=== PATIENT | female | born 1945 | race Caucasian/White ===

== ENCOUNTER 2019-07-05 07:22 | Outpatient (CLI) | payer OTHER, SELFPAY ==
--- NOTE | ~2019-07-05 | MR_ITS ---
EXAMINATION: MR lumbar spine wo con DATE: 07/05/2019 08:27 INDICATION: Right lower limb pain aggravated by walking. TECHNIQUE: Magnetic resonance imaging (MRI) of the lumbar spine was performed without intravenous con trast. Sequences included sagittal T2-weighted FSE, sagittal T2-weighted FS FSE, sagittal T1-weighted FSE, and axial T2-weighted FSE. COMPARISON: None FINDINGS: Vertebral body heights are normal. 3 mm anterior and left lateral listhesis of L4 on L5. Severe disc height loss at L4-L5 with fibrovascular degenerative endplate changes. Moderate left-sided predomina nt disc height loss at L5-S1 with additional fibrovascular degenerative endplate changes. Marrow sign al is otherwise normal. Disc desiccation and mild disc height loss at T12-L1, L1-L2 and L3-L4. The co nus medullaris terminates at L2-L3. There is normal signal in the caudal spinal cord. Moderate right renal atrophy. Paravertebral soft tissues are otherwise unremarkable. The following disc levels are s pecifically discussed: T12-L1: Disc is bulging. There is hypertrophy of the ligamentum flavum. There is moderate bilateral f acet joint osteoarthritis. There is mild right and minimal left neural foraminal stenosis. There is m ild central canal stenosis. L1-L2: Disc is bulging with superimposed annular fissure and central disc extrusion with disc materia l extending a few millimeters cephalad and caudal to the level of the endplates. There is mild hypert rophy of the ligamentum flavum. There is moderate bilateral facet joint osteoarthritis. There is mild bilateral neural foraminal stenosis. There is mild to moderate central canal stenosis. L2-L3: Disc is bulging. There is hypertrophy of the ligamentum flavum. There is moderate bilateral fa cet joint osteoarthritis. There is mild bilateral neural foraminal stenosis. There is mild central ca nal stenosis. L3-L4: Disc is bulging. There is hypertrophy of the ligamentum flavum. There is moderate bilateral fa cet joint osteoarthritis. There is mild bilateral neural foraminal stenosis. There is mild central ca nal stenosis. L4-L5: Annular fissure and broad-based disc extrusion extending from foraminal zone to foraminal zone with disc material extending up to 6 mm cephalad to the level of the inferior endplate of L4. There is hypertrophy of the ligamentum flavum. There is severe bilateral facet joint osteoarthritis. There is moderate bilateral neural foraminal stenosis. There is mild to moderate central canal stenosis. L5-S1: Annular fissure and broad-based disc extrusion extending from foraminal zone to foraminal zone with disc material extending a few millimeters cephalad and caudal to the level of the endplates. Th ere is severe left and moderate right facet joint osteoarthritis. There is moderate to severe left an d mild to moderate right neural foraminal stenosis. There is mild central canal stenosis. IMPRESSION: 1. Moderate to severe lumbar spondylosis. Reviewed, dictated and finalized at location A.
== END 2019-07-05 07:23 | disposition home or self-care (01) ==
LOC: ANHIMG 07:30
PROVIDERS: PCP Emergency Medicine; Visit Provider Emergency Medicine
DX: M79.604 Pain in right leg (principal); M47.816 Spondylosis without myelopathy or radiculopathy, lumbar region
CPT/HCPCS: 72148

== ENCOUNTER → 2020-02-19 10:33 | Outpatient (CLI) | payer OTHER, SELFPAY ==
--- NOTE | ~2020-02-19 | MM_ITS ---
EXAMINATION: MM screening [facility] BI w berenice HISTORY: Screening TECHNIQUE: Craniocaudal and mediolateral oblique 3-D tomosynthesis images were obtained and synthetic 2-D images were generated. CAD analysis was submitted and interpreted. COMPARISON: Comparison to multiple prior studies sequentially, with oldest reviewed study dated 09/28. BREAST PARENCHYMAL COMPOSITION: There are scattered areas of fibroglandular density. FINDINGS: There is no evidence of suspicious mass, calcification, or architectural distortion to sugg est malignancy in either breast. There has been no suspicious interval change. IMPRESSION: 1. No mammographic evidence of malignancy. 2. Recommend routine screening mammography in one year. BI-RADS Category 1: Negative Reviewed, dictated and finalized at location A. DECORATOR
--- NOTE | ~2020-02-19 | CT_ITS ---
EXAMINATION: CT sinus wo con DATE: 02/19/2020 11:18 INDICATION: Nasal congestion. Sinus surgery years ago. TECHNIQUE: Computed tomography (CT) of the paranasal sinuses was performed without contrast. Iterativ e reconstruction technique was employed. Exam dose: 254.35 mGy-cm total exam DLP. COMPARISON: 04/25/2018 paranasal sinuses FINDINGS: The nasal septum is virtually midline. There is intralamellar cell of both middle nasal turbinate. The nasal turbinates are moderately promi nent in size, relatively symmetric. The ostiomeatal units are patent bilaterally. Right nasal antral window. There is chronic thickening of the wall of the right maxillary sinus and mild mucoperiosteal thickeni ng of the right maxillary antrum, Slight mucoperiosteal thickening of the left maxillary antrum. The frontal sinuses and sphenoid sinus es are normally developed and aerated. The mastoid air cells are normally developed and aerated. IMPRESSION: Right nasal antral window Interlamellar cell of both middle nasal turbinates Chronic thickening of the wall of the right maxillary sinus Mild right and minimal left maxillary sinus mucoperiosteal thickening Reviewed, dictated and finalized at Location A. Reviewed, dictated and finalized at location A. STERED PHARMACY TECHNICIAN
== END ==
PROVIDERS: Visit Provider Emergency Medicine
DX: Z12.31 Encounter for screening mammogram for malignant neoplasm of breast (principal); R09.81 Nasal congestion
CPT/HCPCS: 70486; 77063; 77067

== ENCOUNTER 2020-03-05 13:00 | Outpatient (CLI) | payer OTHER, SELFPAY | END 2020-03-05 13:01 | disposition home or self-care (01) | LOC: ANHAUDIO 13:02 | PROVIDERS: PCP Emergency Medicine; Visit Provider Otolaryngology | DX: H91.92 Unspecified hearing loss, left ear (principal); H61.23 Impacted cerumen, bilateral | CPT/HCPCS: 99199 ==

== ENCOUNTER → 2021-02-20 12:24 | Outpatient (CLI) | payer OTHER, SELFPAY ==
--- NOTE | ~2021-02-20 | DEXA_ITS ---
Bone Density Report Name: FLORINDA MAGUIRE Age: 75 Sex: Female Ethnicity: White Date of : 1945 Indication: osteopenia; height loss; hysterectomy;postmenopausal Referring Provider: PHU DAUGHERTY Study: Bone densitometry was performed. Exam Date: February 20, 2021 Accession number: [id number] Bone Density: Region BMD T-score Z-score Classification AP Spine (L1, L2, L3) 1.009 -0.1 2.3 Normal Femoral Neck (Left) 0.701 -1.3 0.8 Osteopenia Total Hip (Left) 0.823 -1.0 0.8 Normal Femoral Neck (Right) 0.771 -0.7 1.4 Normal Total Hip (Right) 0.806 -1.1 0.7 Osteopenia Total Hip Mean 0.815 -1.1 0.8 Osteopenia World Health Organization criteria for BMD impression classify patients as: Normal (T-score at or above -1.0), Osteopenia (T-score between -1.0 and -2.5), or Osteoporosis (T-score at or below -2.5). 10-year Fracture Risk(1): Major Osteoporotic Fracture 10% Hip Fracture 2.0% Reported Risk Factors: [place] (), Neck BMD=0.701, BMI=23.7 (1) FRAX(R) Version 3.08. Fracture probability calculated for an untreated patient. Fracture probability may be lower if the patient has received treatment. Previous Exams: Region Exam Age BMD T-score BMD Change BMD Change Date g/cm2 vs Baseline vs Previous AP Spine(L1, L2, L3) 02/20/2021 75 1.009 -0.1 -0.026* 0.084* 02/08/2019 73 0.924 -0.9 -0.110* -0.026* 03/31/2016 70 0.950 -0.6 -0.084* -0.084* 11/27/2005 60 1.034 0.1 Total Hip(Left) 02/20/2021 75 0.823 -1.0 -0.127* -0.008 02/08/2019 73 0.831 -0.9 -0.119* -0.012 03/31/2016 70 0.842 -0.8 -0.108* -0.108* 11/27/2005 60 0.950 0.1 Total Hip(Right) 02/20/2021 75 0.806 -1.1 -0.073* 0.062* 02/08/2019 73 0.745 -1.6 -0.134* -0.019 03/31/2016 70 0.763 -1.5 -0.116* -0.116* 11/27/2005 60 0.879 -0.5 *Denotes significance at 95% confidence level, LSC for AP Spine = 0.022 g/cm2, LSC for Total Hip = 0.027 g/cm2 Clinical Information Provided by Patient: Has used the following medications: Vitamin D Has the following medical conditions: Hysterectomy Patient maximum height was 64.5 Menopause Age: 36 Drinks caffeinated beverages Onset of menses at age 14 Number of children 2 Impression: The patient has low bone mass, based on the Left Femoral Nec
== END ==
PROVIDERS: PCP Emergency Medicine; Visit Provider Emergency Medicine
DX: M85.89 Other specified disorders of bone density and structure, multiple sites (principal)
CPT/HCPCS: 77080

== ENCOUNTER → 2021-06-10 12:59 | Outpatient (CLI) | payer OTHER, SELFPAY ==
--- NOTE | ~2021-06-10 | MM_ITS ---
EXAMINATION: MM screening [facility] BI w berenice HISTORY: Screening mammogram, family history of breast cancer in her sister. TECHNIQUE: Craniocaudal and mediolateral oblique 3-D tomosynthesis images were obtained and synthetic 2-D images were generated. CAD analysis was submitted and interpreted. COMPARISON: 02/19/2020, 02/08/2019, 01/06/2018 BREAST PARENCHYMAL COMPOSITION: There are scattered areas of fibroglandular density. FINDINGS: There is no suspicious mass, calcification, or architectural distortion to suggest malignan cy in either breast. There has been no suspicious interval change. IMPRESSION: 1. No mammographic evidence of malignancy. 2. Recommend routine screening mammography in one year. BI-RADS Category 1: Negative Reviewed, dictated and finalized at location A.
== END ==
PROVIDERS: PCP Emergency Medicine; Visit Provider Emergency Medicine
DX: Z12.31 Encounter for screening mammogram for malignant neoplasm of breast (principal)
CPT/HCPCS: 77063; 77067

== ENCOUNTER → 2021-09-10 09:59 | Outpatient (CLI) | payer OTHER, SELFPAY ==
--- NOTE | ~2021-09-10 | XR_ITS ---
XR lumbar spine 2-3V DATE: 09/10/2021 10:49 INDICATION: Back pain TECHNIQUE: AP, lateral, coned lateral lumbosacral views COMPARISON: None FINDINGS: Osteopenia. There is prominent degenerative spurring of the lower thoracic spine. There is multi-level degenerative disc disease, moderate at L1-2, mild at L2-3, moderate at L3-4, sev ere at L4-5 and L5-S1. There is degenerative change at the apophyseal joints at L4-5 and L5-S1, with associated grade1 anter olisthesis at L4-5. The sacroiliac joints are intact with degenerative change. There is abdominal aortic and common iliac artery calcifications, without evidence of aneurysm. IMPRESSION: Osteopenia Multilevel degenerative disc disease, most prominent at L4-5 and L5-S1 Grade 1 anterolisthesis at L4-5 due to degenerative change at the apophyseal joints Reviewed, dictated and finalized at location B. IMPRESSION: Osteopenia Multilevel degenerative disc disease, most prominent at L4-5 and L5-S1 Grade 1 anterolisthesis at L4-5 due to degenerative change at the apophyseal hayley ints
== END ==
PROVIDERS: PCP Emergency Medicine; Visit Provider Emergency Medicine
DX: M54.9 Dorsalgia, unspecified (principal); M51.36 Other intervertebral disc degeneration, lumbar region; M43.16 Spondylolisthesis, lumbar region
CPT/HCPCS: 72100

== ENCOUNTER → 2021-12-01 13:11 | Outpatient (CLI) | payer OTHER, SELFPAY ==
--- NOTE | ~2021-12-01 | MR_ITS ---
EXAMINATION: MR lumbar spine wo con DATE: 12/01/2021 13:45 INDICATION: Dorsalgia, unspecified. TECHNIQUE: Magnetic resonance imaging (MRI) of the lumbar spine was performed without intravenous con trast. Sequences included sagittal T2-weighted FSE, sagittal T2-weighted FS FSE, sagittal T1-weighted FSE, and axial T2-weighted FSE. COMPARISON: Lumbar spine MRI 07/05/2019, radiograph 09/10/2021 FINDINGS: There is 6 degrees levocurvature of lumbar spine. There is 3 mm anterolisthesis of L4 on L5 . Vertebral body heights are normal. There is mildly decreased disc height at T12-L1, L1-L2, and L3-L 4 and severely decreased disc height at L4-L5 and L5-S1. The distal spinal cord signal intensity is n ormal. The conus medullaris is at L2. There is mild atrophy of right kidney. There are cysts in right kidney measuring up to 6 mm. The following disc levels are specifically discussed: T12-L1: The disc is bulging and has an annular fissure. There is severe bilateral facet joint osteoar thritis. There is mild bilateral neural foraminal stenosis. There is mild central canal stenosis. L1-L2: The disc is bulging and has an annular fissure. There is severe bilateral facet joint osteoart hritis. There is mild bilateral neural foraminal stenosis. There is mild central canal stenosis. L2-L3: The disc is bulging and has an annular fissure. There is severe bilateral facet joint osteoart hritis. There is mild bilateral neural foraminal stenosis. There is mild central canal stenosis. L3-L4: The disc is bulging. There is severe bilateral facet joint osteoarthritis. There is mild bilat eral neural foraminal stenosis. There is mild central canal stenosis. L4-L5: The disc is bulging and has an annular fissure. There is severe bilateral facet joint osteoart hritis. There is moderate bilateral neural foraminal stenosis. There is mild central canal stenosis. L5-S1: The disc is bulging and has an annular fissure. There is severe bilateral facet joint osteoart hritis. There is mild right and moderate left neural foraminal stenosis. There is mild central canal stenosis. IMPRESSION: 1. Severe lumbar spondylosis, stable from 07/05/2019. Reviewed, dictated and finalized at location A.
== END ==
PROVIDERS: PCP Emergency Medicine; Visit Provider Emergency Medicine
DX: M54.9 Dorsalgia, unspecified (principal); M47.816 Spondylosis without myelopathy or radiculopathy, lumbar region
CPT/HCPCS: 72148

== ENCOUNTER 2022-03-31 08:45 | Outpatient (CLI) | payer OTHER, SELFPAY | END 2022-03-31 08:46 | disposition home or self-care (01) | LOC: ANHAUDIO 08:45 | PROVIDERS: PCP Emergency Medicine; Visit Provider Otolaryngology | DX: H90.3 Sensorineural hearing loss, bilateral (principal) | CPT/HCPCS: 92557; 92567 ==

== ENCOUNTER 2022-05-28 10:00 | Outpatient (RCR) | payer OTHER, SELFPAY | END 2022-05-28 23:59 | disposition home or self-care (01) | LOC: ANHAUDIO 10:00 | PROVIDERS: PCP Emergency Medicine; Visit Provider Emergency Medicine | DX: Z46.1 Encounter for fitting and adjustment of hearing aid (principal) | CPT/HCPCS: 99199; V5261 ==

== ENCOUNTER → 2022-10-01 13:46 | Outpatient (CLI) | payer OTHER, SELFPAY ==
--- NOTE | ~2022-10-01 | MM_ITS ---
EXAMINATION: MM screening [facility] BI w berenice HISTORY: Screening TECHNIQUE: Craniocaudal and mediolateral oblique 3-D tomosynthesis images were obtained and synthetic 2-D images were generated. CAD analysis was submitted and interpreted. COMPARISON: Comparison to multiple prior studies sequentially, with oldest reviewed study dated 05/2015. BREAST PARENCHYMAL COMPOSITION: There are scattered areas of fibroglandular density. FINDINGS: There is no evidence of suspicious mass, calcification, or architectural distortion to sugg est malignancy in either breast. There has been no suspicious interval change. IMPRESSION: 1. No mammographic evidence of malignancy. 2. Recommend routine screening mammography in one year. BI-RADS Category 1: Negative Reviewed, dictated and finalized at location A.
== END ==
PROVIDERS: PCP Emergency Medicine; Visit Provider Emergency Medicine
DX: Z12.31 Encounter for screening mammogram for malignant neoplasm of breast (principal)
CPT/HCPCS: 77063; 77067

== ENCOUNTER → 2022-12-04 07:42 | Outpatient (CLI) | payer OTHER, SELFPAY ==
--- NOTE | ~2022-12-04 | MR_ITS ---
EXAMINATION: MR IAC wo/w con DATE: 12/04/2022 08:36 INDICATION: Chronic left sided hearing loss and dizziness. TECHNIQUE: Magnetic resonance imaging (MRI) of the brain and brainstem was performed without and with 12 mL Multihance intravenous contrast. Sequences included sagittal and axial T1-weighted FSE, axial diffusion-weighted FS EPI, axial T2*-weighted GRE, axial T2-weighted FLAIR Propeller, axial T2-weight ed Propeller, small [id number]-qq-[id number] coronal FIESTA, small cvmbm-qh-jbzp coronal T1-weighted FSE, and sm all knquo-bn-qhco axial T1-weighted SPGR. Postcontrast sequences included axial T1-weighted FSE, smal l yuayd-gy-xwor coronal T1-weighted FSE, and small pmqgp-lw-kmwb axial T1-weighted SPGR. Apparent dif fusion coefficient (ADC) maps were created. COMPARISON: None. FINDINGS: There are no areas of restricted diffusion to suggest acute infarction. No intracranial hemorrhage or abnormal intracranial mass lesion. There are scattered areas of nonspecific increased T2-weighted si gnal intensity in the cerebral white matter, predominantly involving the deep and periventricular whi te matter which is within normal limits for age and likely sequela of chronic small vessel ischemic d isease. Normal seventh/eighth cranial nerve complexes. No cerebellopontine angles masses. No eviden ce of mastoid or middle ear fluid. There are no intraparenchymal signal abnormalities seen on the ot her pulse sequences. The ventricles are symmetric and normal in size. There are no abnormal extra-axi al fluid collections. Cerebral vasculature appears unremarkable on the post contrast imaging. Changes of bilateral intraocular lens replacement. Mucosal thickening throughout the paranasal sinuses. The re are thickened sheth to the right maxillary sinus consistent with chronic sinusitis. There are no a reas of abnormal enhancement on the post contrast images. IMPRESSION: 1. No acute intracranial process or abnormally enhancing brain lesions. 2. The bilateral internal auditory canals, inner and middle ears appear unremarkable. No etiology anu ntified for reported left-sided hearing loss. 3. Moderate scattered calcific white matter T2 hyperintensity which is within normal limits for age a nd likely sequela of chronic small vessel ischemic disease. Reviewed, dictated and finalized at location A. IMPRESSION: 1. No acute intracranial process or abnormally enhancing brain lesions. 2. The bilateral internal auditory canals, inner and middle ears appear unremar kable. No etiology identified for reported left-sided hearing loss. 3. Moderate scattered calcific white matter T2 hyperintensity which is within n ormal limits for age and likely sequela of chronic small vessel ischemic diseas e.
== END ==
PROVIDERS: PCP Emergency Medicine; Visit Provider Otolaryngology
DX: H91.8X9 Other specified hearing loss, unspecified ear (principal); R90.82 White matter disease, unspecified
CPT/HCPCS: 70553; A9577

== ENCOUNTER → 2022-12-10 07:04 | Outpatient (CLI) | payer OTHER, SELFPAY ==
--- NOTE | ~2022-12-10 | XR_ITS ---
Left Forearm AP and lateral views of the left forearm were performed. Clinical History: Pain Findings: No fracture or dislocation is seen. Osseous alignment in anatomic. There are degenerative changes at the elbow, with spurring at the coronoid process of the ulna. There is and moderate to adv anced degenerative change of the first CMC joint. Soft tissues are unremarkable. Impression: No fracture or dislocation. Degenerative changes at the elbow and first CMC joint, as detailed above. Reviewed, dictated and finalized at location M. Impression: No fracture or dislocation. Degenerative changes at the elbow and first CMC joint, as detailed above.
== END ==
PROVIDERS: PCP Emergency Medicine; Visit Provider Emergency Medicine
DX: M79.602 Pain in left arm (principal); R93.6 Abnormal findings on diagnostic imaging of limbs
CPT/HCPCS: 73090

== ENCOUNTER 2023-10-20 08:02 | Emergency (ER) | payer OTHER, SELFPAY ==
[2023-10-20 08:17] VITALS: BP 139/69; PULSE 90; RESP 20; TEMP 36.6; O2SAT 96
[2023-10-20 08:20] VITALS: BP 139/69; PULSE 90; RESP 20; TEMP 36.6; O2SAT 96
--- NOTE | 2023-10-20 08:26 | ED.URI ---
HPI - URI/Sore Throat General Chief Complaint: Ear Stated Complaint: ear clogging and pain Time Seen by Provider: 10/20/23 08:26 Source: patient Mode of arrival: ambulatory Limitations: no limitations History of Present Illness HPI Narrative: 77 yo F presents with c/o nasal congestion, sinus pressure and headaches for 1 wk. PND with intermittent sore throat for past few days. Feeling off balance. Ears clogged. No change to hearing. AFebrile. Not taking any OTC meds to treat symptoms. all systems reviewed and negative except as noted above. Related Data Home Medications Medication Instructions Recorded Confirmed meclizine 25 mg tablet 25 mg PO BID 10/20/23 10/20/23 Allergies Allergy/AdvReac Type Severity Reaction Status Date / Time metformin AdvReac Intermediate Nausea Verified 10/20/23 08:18 Review of Systems Review of Systems: CONSTITUTIONAL: Denies fever, chills, or sweats. EYES: Denies visual changes, redness, or discharge. ENT: Reports rhinorrhea, congestion, sinus pressure, sore throat, bilateral ear pressure. CARDIOVASCULAR: Denies chest pain, palpitations, or edema. RESPIRATORY: Denies cough or dyspnea. GASTROINTESTINAL: Denies abdominal pain, nausea, vomiting, or diarrhea. GENITOURINARY: Denies dysuria or hematuria. SKIN: Denies rash or itching. MUSCULOSKELETAL: Denies back pain, joint pain, or myalgia. NEUROLOGIC: Reports headache, intermittent dizziness. Denies numbness, or weakness. PSYCHIATRIC: Denies anxiety or depression. All other systems reviewed are negative, except as documented in HPI. [facility] Past Medical History Medical History (Updated 10/20/23 @ 08:49 by Sisi Gallardo NP) Abdominal muscle pain Acute cystitis without hematuria Acute non-recurrent maxillary sinusitis Aftercare following right knee joint replacement surgery Allergic rhinitis Back pain with radiation Cerumen debris on tympanic membrane of both ears Chronic maxillary sinusitis Chronic pain of right knee Congestion of both ears Decreased hearing of left ear Depression Dysuria Dysuria Flatulence/gas pain/belching Gastroesophageal reflux disease with esophagitis Hip pain, bilateral HLD (hyperlipidemia) HLD (hyperlipidemia) Impacted cerumen of both ears Injury of left forearm Lower abdominal pain Maxillary sinusitis Osteoarthritis of both knees Osteopenia Other chronic sinusitis Other screening mammogram Pain in left hip Primary osteoarthritis of right knee Rash and nonspecific skin eruption Right upper quadrant abdominal pain Sciatica of right side Sinus congestion Sinus congestion Sinusitis chronic, frontal Urge incontinence of urine Vitamin D deficiency Surgical History Surgical History History of total right knee replacement Family History Family History Mother Family history of malignant neoplasm, Onset Age: 92 Family history of rheumatoid arthritis, Onset Age: 94 Father Patient's father is , Onset Age: 76 Social History Social History Smoking status: Former smoker Second hand tobacco smoke exposure: No Alcohol intake: never Substance use: never Lack of Transportation: No Lack of Food: Never True Current Housing: I Have Housing Concerned About Future Housing: No Difficulty Paying Gas/Electric Bills: No Difficulty Paying for Meds: No Currently Unemployed: No Education: High School Diploma/GED Difficulty w/ Childcare or Family Care: No Comments At time of signature, agree with nursing past medical, surgical, social and family history. There is no relevant family history pertinent to the presenting complaint. Exam Narrative: GENERAL: This is a well-nourished, well-developed patient, in no apparent distress. HEAD: normocephalic, atraumatic. EYES: PERRL. S
== END 2023-10-20 08:54 | disposition home or self-care (01) ==
PROVIDERS: Emergency Provider Nurse Practitioner Family; PCP Emergency Medicine
DX: J01.90 Acute sinusitis, unspecified (principal); Z20.822 Contact with and (suspected) exposure to COVID-19; Z87.891 Personal history of nicotine dependence; E78.5 Hyperlipidemia, unspecified; M17.0 Bilateral primary osteoarthritis of knee; M85.80 Other specified disorders of bone density and structure, unspecified site
CPT/HCPCS: 87426; 99213; G0463

== ENCOUNTER 2023-11-18 10:31 | Outpatient (CLI) | payer OTHER, SELFPAY ==
--- NOTE | ~2023-11-18 | MM_ITS ---
EXAMINATION: MM screening [facility] BI w berenice HISTORY: Screening TECHNIQUE: Craniocaudal and mediolateral oblique 3-D tomosynthesis images were obtained and synthetic 2-D images were generated. CAD analysis was submitted and interpreted. COMPARISON: Comparison to multiple prior studies sequentially, with oldest reviewed study dated 07/28. BREAST PARENCHYMAL COMPOSITION: Not dense: There are scattered areas of fibroglandular density. FINDINGS: There is no evidence of suspicious mass, calcification, or architectural distortion to sugg est malignancy in either breast. There has been no suspicious interval change. IMPRESSION: 1. No mammographic evidence of malignancy. 2. Recommend routine screening mammography in one year. BI-RADS Category 1: Negative Reviewed, dictated and finalized at location B.
== END 2023-11-18 10:32 | disposition home or self-care (01) ==
LOC: MICIMG 10:32
PROVIDERS: PCP Emergency Medicine; Visit Provider Emergency Medicine
DX: Z12.31 Encounter for screening mammogram for malignant neoplasm of breast (principal)
CPT/HCPCS: 77063; 77067

== ENCOUNTER 2023-12-09 10:23 | Outpatient (CLI) | payer OTHER, SELFPAY ==
--- NOTE | ~2023-12-09 | XR_ITS ---
[id number] Ordering provider: Bishop Downs MD History: . M25.561 - Pain in right knee . Comparison: None. FINDINGS: BONES: No acute fracture or dislocation. JOINT SPACES: Total knee arthroplasty. SOFT TISSUES: Normal. IMPRESSION: No acute osseous abnormality right knee. Total knee arthroplasty. Reviewed, dictated and finalized at location A.
== END 2023-12-09 10:24 | disposition home or self-care (01) ==
LOC: MICIMG 10:25
PROVIDERS: PCP Emergency Medicine; Visit Provider Emergency Medicine
DX: M25.561 Pain in right knee (principal); Z96.651 Presence of right artificial knee joint
CPT/HCPCS: 73560

== ENCOUNTER 2024-02-02 08:07 | Emergency (ER) | payer OTHER, SELFPAY ==
--- NOTE | ~2024-02-02 | XR_ITS ---
XR chest 2V Ordering provider: Sisi Gallardo NP History: 78 years Female with . cough, chills . Comparison: None. FINDINGS: MEDIASTINUM: The cardiac silhouette is not enlarged. LUNGS: No infiltrates or effusions. Lucency is seen in the right midzone peripherally which may be enamorado mmation shadow. Focal pneumothorax is less likely. Repeat exam in 2 hours is advised. OTHER: No free air under the diaphragm. Degenerative changes of the spine. Right cervical rib is noted. IMPRESSION: Lucency seen in the right midzone peripherally most likely summation shadow. A repeat exam in 2 hours to exclude a pneumothorax is advised. No evidence of pneumonia seen. Reviewed, dictated and finalized at location A. [employer]
--- NOTE | ~2024-02-02 | XR_ITS ---
EXAMINATION: XR chest 2V DATE: 02/02/2024 10:55 INDICATION: Assess for pneumothorax. TECHNIQUE: PA and lateral views of the chest were obtained. COMPARISON: Chest radiograph dated 02/02/2024 FINDINGS: There are skin folds which continue beyond the pleural margins and which project over the right apex and lateral right midlung zone. No pneumothorax. Mild eventration along the right hemidiaphragm. Mild streaky left basilar atelectasis. No other airspace opacities, pulmonary edema or pleural effusion. The cardiomediastinal silhouette is normal. Moderate thoracic spondylosis with bridging osteophytes a t multiple levels consistent with diffuse idiopathic skeletal hyperostosis (DISH). IMPRESSION: 1. Minimal streaky left basilar atelectasis. No pneumothorax or other acute cardiopulmonary disease. Reviewed, dictated and finalized at location B. [employer]KER IMPRESSION: 1. Minimal streaky left basilar atelectasis. No pneumothorax or other acute car diopulmonary disease.
[2024-02-02 08:29] VITALS: BP 124/64; PULSE 73; RESP 16; TEMP 36.8; O2SAT 100
[2024-02-02 08:45] LABS: EDCOVIDSCREEN Negative (Negative); EDINFLUASCREEN Negative (Negative); EDINFLUBSCREEN Negative (Negative)
--- NOTE | 2024-02-02 08:45 | ED_ITS ---
HPI - General Adult General Chief complaint: Upper Respiratory Infection Stated complaint: body chills / headache Time Seen by Provider: 02/02/24 08:45 Source: patient Mode of arrival: ambulatory Limitations: no limitations History of Present Illness HPI narrative: 78 yo F presents with c/o cough, fatigue, chills for 2 to 3 days. Denies CP/SOB. No N/V/D. Not taking any OTC meds to treat symptoms. States chills are what is bothering me the most . Called her PCP for appt and was told need to rule out pneumonia, UTI and covid at prior to making appt. Patient is well- appearing. Ambulatory with walker. All systems reviewed and negative except as noted above. Related Data Home Medications Medication Instructions Recorded Confirmed fluticasone propionate 50 1 spray intranasal DAILY 02/02/24 02/02/24 mcg/actuation nasal spray,suspension Allergies Allergy/AdvReac Type Severity Reaction Status Date / Time metformin AdvReac Intermediate Nausea Verified 02/02/24 08:19 Review of Systems Review of Systems: CONSTITUTIONAL: Denies fever . Reports chills and fatigue. EYES: Denies visual changes, redness, or discharge. ENT: Denies rhinorrhea, congestion, sore throat, or otalgia. CARDIOVASCULAR: Denies chest pain, palpitations, or edema. RESPIRATORY: Reports cough. Denies dyspnea. GASTROINTESTINAL: Denies abdominal pain, nausea, vomiting, or diarrhea. GENITOURINARY: Denies dysuria or hematuria. SKIN: Denies rash or itching. MUSCULOSKELETAL: Denies back pain, joint pain, or myalgia. NEUROLOGIC: Denies headache, numbness, or weakness. PSYCHIATRIC: Denies anxiety or depression. All other systems reviewed are negative, except as documented in HPI. [facility] Past Medical History Medical History Abdominal muscle pain Acute cystitis without hematuria Acute non-recurrent maxillary sinusitis Aftercare following right knee joint replacement surgery Allergic rhinitis Back pain with radiation Cerumen debris on tympanic membrane of both ears Chronic maxillary sinusitis Chronic pain of right knee Congestion of both ears Decreased hearing of left ear Depression Dysuria Dysuria Flatulence/gas pain/belching Gastroesophageal reflux disease with esophagitis Hip pain, bilateral HLD (hyperlipidemia) HLD (hyperlipidemia) Impacted cerumen of both ears Injury of left forearm Lower abdominal pain Maxillary sinusitis Osteoarthritis of both knees Osteopenia Other chronic sinusitis Other screening mammogram Pain in left hip Primary osteoarthritis of right knee Rash and nonspecific skin eruption Right upper quadrant abdominal pain Sciatica of right side Sinus congestion Sinus congestion Sinusitis chronic, frontal Urge incontinence of urine Vitamin D deficiency Surgical History Surgical History History of total right knee replacement Family History Family History Mother Family history of malignant neoplasm, Onset Age: 92 Family history of rheumatoid arthritis, Onset Age: 94 Father Patient's father is , Onset Age: 76 Social History Social History Smoking status: Former smoker Second hand tobacco smoke exposure: No Alcohol intake: never Substance use: never Do You Feel Safe in your Home?: Yes Lack of Transportation: No Lack of Food: Never True Current Housing: I Have Housing Concerned About Future Housing: No Difficulty Paying Gas/Electric Bills: No Difficulty Paying for Meds: No Currently Unemployed: No Education: High School Diploma/GED Difficulty w/ Childcare or Family Care: No Comments At time of signature, agree with nursing past medical, surgical, social and family history. There is no relevant family history pertinent to the presenting complaint. Exam Narrative: GENERAL: This is a well-nourished, well-developed patient, in no apparent distress. HEAD: normocephalic, atraumatic. EYES: PERRL. Sclera clear/white. Vision is grossly intact. EARS: External ears normal, auditory canals clear and without drainage, TMs normal without perforation. Hearing grossly intact. NOSE: External nose normal with no obvious nasal discharge, nares without rednes s, no rhinorrhea. THROAT: Mucous membranes moist, posterior pharynx clear. NECK: Neck supple, non-tender without lymphadenopathy, masses or thyromegaly. CARDIOVASCULAR: Regular rate and rhythm without murmurs, gallops, or rubs. RESPIRATORY: Clear to auscultation. Breath sounds equal bilaterally. No wheezes, rales, or rhonchi. SKIN: warm, Dry, intact with no suspicious lesions or rash, good texture and turgor. NEURO: awake, alert, and oriented to person, place and time. There were no obvious focal neurologic abnormalities. EXTREMITIES: No joint tenderness, effusion, or edema noted. Course Course Level of Care: [facility] Visit Reevaluation(s) Reevaluation #1: discussed x-ray results with pt. possible pneumothorax per radiologist. pt has agreed to wait for repeat xray. Date: 02/02/24 Time: 09:41 Vital Signs Vital signs: Vital Signs Temperature 36.8 C 02/02/24 08:29 Pulse Rate 73 02/02/24 08:29 Respiratory Rate 16 02/02/24 08:29 Blood Pressure 124/64 02/02/24 08:29 Pulse Oximetry 100 02/02/24 08:29 Oxygen Delivery Room Air 02/02/24 08:29 Temperature 36.8 C 02/02/24 08:29 Pulse Rate 73 02/02/24 08:29 Respiratory Rate 16 02/02/24 08:29 Blood Pressure 124/64 02/02/24 08:29 Pulse Oximetry 100 02/02/24 08:29 Oxygen Delivery Room Air 02/02/24 08:29 reviewed Medical Decision Making MDM Narrative Medical decision making narrative: patient's 1st chest x-ray showed concern for pneumothorax. Discussed results with Dr. Billy, [facility] medical device sales, and was recommended that results were discussed with patient and she could stay for repeat chest x-ray if Patient agreed. Patient did agree to repeat chest x-ray. Repeat chest x-ray was negative for pneumothorax. Chest x-ray also negative for pneumonia. COVID, influenza negative. Urinalysis was negative for leukocytes and nitrates. Urine culture ordered. Urinalysis positive for hematuria. Recommend patient follow- up with your primary care physician for further evaluation due to hematuria. Patient is well-appearing. No chest pain or shortness of breath. Recommend she take [id number] medications to treat cough. Will monitor her temperature for fever. Patient is aware of diagnosis, understands and agrees to treatment plan. Anticipatory guidance given. Patient agrees to follow-up as directed and is aware of reasons to seek care at the emergency department. Portions of this record may have been created with voice recognition software Vital Signs Vital Signs: Vital Signs Temperature 36.8 C 02/02/24 08:29 Pulse Rate 73 02/02/24 08:29 Respiratory Rate 16 02/02/24 08:29 Blood Pressure 124/64 02/02/24 08:29 Pulse Oximetry 100 02/02/24 08:29 Oxygen Delivery Room Air 02/02/24 08:29 Temperature 36.8 C 02/02/24 08:29 Pulse Rate 73 02/02/24 08:29 Respiratory Rate 16 02/02/24 08:29 Blood Pressure 124/64 02/02/24 08:29 Pulse Oximetry 100 02/02/24 08:29 Oxygen Delivery Room Air 02/02/24 08:29 Lab Data Labs: Lab Results 02/02/24 02/02/24 02/02/24 Range/Units 08:44 08:45 08:47 POC Capillary Glucose 103 (65-105) mg/dl POC Urine Color Yellow POC Urine Clarity Clear POC Urine pH 6.0 POC Ur Specif Carpenter 1.030 POC Urine Protein Negative (Negative) POC Ur Glucose (UA) 2+ (Negative) POC Urine Ketones Negative (Negative) POC Urine Blood 2+ (Negative) POC Urine Nitrite Negative (Negative) POC Urine Bilirubin Negative (Negative) POC Urine Urobilinogen 0.2 POC U Leukocyte Esteras Negative (Negative) POC Influenza A Ag Negative (Negative) POC Influenza B Ag Negative (Negative) POC SARS CoV-2 Ag Negative (Negative) Discharge Plan Discharge Clinical Impression: Acute viral syndrome Patient Disposition: Home, Self-Care Condition: Stable Instructions: Viral Syndrome (ED) Additional Instructions: Your chest x-ray was negative for pneumonia. Your urinalysis did not show any concerns for a urinary tract infection. You did have blood in your urine. See your doctor for further evaluation. Your covid and influenza test was negative. Your symptoms are viral and may last 7-10 days. Taking [id number] medication to treat her symptoms such as DayQuil NyQuil cold and flu. Drink plenty water and rest. Schedule a follow-up appointment with your primary care physician. For any worsening of symptoms go to the ER. Prescriptions: No Action fluticasone propionate 50 mcg/actuation spray,suspension 1 spray INTRANASAL DAILY meclizine 25 mg tablet 25 mg PO Q6-8H PRN (Reason: dizziness) Qty: 30 0RF cholecalciferol (vitamin D3) 50 mcg (2,000 unit) capsule 50 mcg PO DAILY Qty: 90 2RF pravastatin 10 mg tablet See Rx Instructions .ROUTE .COMPLEX Qty: 90 2RF Dose Instruction: TAKE 1 TABLET BY MOUTH EVERY DAY Rx Instructions: TAKE 1 TABLET BY MOUTH EVERY DAY Farxiga 5 mg tablet See Rx Instructions .ROUTE .COMPLEX Qty: 90 3RF Dose Instruction: TAKE 1 TABLET BY MOUTH EVERY DAY Rx Instructions: TAKE 1 TABLET BY MOUTH EVERY DAY fenofibrate nanocrystallized 48 mg tablet See Rx Instructions .ROUTE .COMPLEX Qty: 90 2RF Dose Instruction: TAKE 1 TABLET BY MOUTH EVERY DAY Rx Instructions: TAKE 1 TABLET BY MOUTH EVERY DAY omeprazole 40 mg capsule,delayed release(DR/EC) See Rx Instructions .ROUTE .COMPLEX Qty: 180 2RF Dose Instruction: TAKE ONE CAPSULE BY MOUTH TWICE A DAY BEFORE A MEAL Rx Instructions: TAKE ONE CAPSULE BY MOUTH TWICE A DAY BEFORE A MEAL amlodipine 10 mg tablet See Rx Instructions .ROUTE .COMPLEX Qty: 90 2RF Dose Instruction: TAKE 1 TABLET BY MOUTH EVERY DAY Rx Instructions: TAKE 1 TABLET BY MOUTH EVERY DAY lisinopril 5 mg tablet See Rx Instructions .ROUTE .COMPLEX Qty: 90 2RF Dose Instruction: TAKE 1 TABLET BY MOUTH EVERY DAY Rx Instructions: TAKE 1 TABLET BY MOUTH EVERY DAY sertraline 50 mg tablet See Rx Instructions .ROUTE .COMPLEX Qty: 90 2RF Dose Instruction: TAKE 1 TABLET BY MOUTH EVERY DAY Rx Instructions: TAKE 1 TABLET BY MOUTH EVERY DAY Follow-up/Referrals: Bishop Downs MD [Primary Care Provider] - Time of Disposition: 11:05
[2024-02-02 08:48] LABS: Glucose Point of Care 103 mg/dl (65-105)
[2024-02-02 08:50] LABS: EDUAAPPEAR Clear; EDUABILI Negative (Negative); EDUABLOOD 2+ (Negative); EDUACOLOR1 Yellow; EDUAGLUCOSE 2+ (Negative); EDUAKETONE Negative (Negative); EDUALEUKO Negative (Negative); EDUANITRATE Negative (Negative); EDUAPROTEIN Negative (Negative); EDUAUROBILI 0.2
== END 2024-02-02 11:05 | disposition home or self-care (01) ==
PROVIDERS: Emergency Provider Nurse Practitioner Family; PCP Emergency Medicine
DX: B34.9 Viral infection, unspecified (principal); R68.83 Chills (without fever); Z20.822 Contact with and (suspected) exposure to COVID-19; E78.5 Hyperlipidemia, unspecified; M17.0 Bilateral primary osteoarthritis of knee; M85.80 Other specified disorders of bone density and structure, unspecified site; Z87.891 Personal history of nicotine dependence
CPT/HCPCS: 71046; 81003; 82948; 87086; 87426; 87804; 99213; G0463

== ENCOUNTER 2024-06-21 08:21 | Outpatient (CLI) | payer OTHER, SELFPAY ==
--- NOTE | ~2024-06-21 | DEXA_ITS ---
Bone Density Report Name: FLORINDA MAGUIRE Age: 78 Sex: Female Ethnicity: White Date of : 1945 Indication: postmenopausal; screening for osteoporosis; height loss; Referring Provider: PHU DAUGHERTY Study: Bone densitometry was performed. Exam Date: June 21, 2024 Accession number: [id number] Bone Density: Region BMD T-score Z-score Classification AP Spine(L1-L4) 1.060 0.1 2.7 Normal Femoral Neck (Left) 0.673 -1.6 0.7 Osteopenia Total Hip (Left) 0.711 -1.9 0.1 Osteopenia Femoral Neck (Right) 0.739 -1.0 1.2 Normal Total Hip (Right) 0.767 -1.4 0.5 Osteopenia Total Hip Mean 0.739 -1.7 0.3 Osteopenia World Health Organization criteria for BMD impression classify patients as: Normal (T-score at or above -1.0), Osteopenia (T-score between -1.0 and -2.5), or Osteoporosis (T-score at or below -2.5). 10-year Fracture Risk(1): Major Osteoporotic Fracture 11% Hip Fracture 2.8% Reported Risk Factors: [place] (), Neck BMD=0.673, BMI=20.2 (1) FRAX(R) Version 3.08. Fracture probability calculated for an untreated patient. Fracture probability may be lower if the patient has received treatment. Clinical Information Provided by Patient: Patient maximum height was 65.0 Menopause Age: 42 Drinks caffeinated beverages Onset of menses at age 10 Number of children 2 Impression: The patient has low bone mass, based on the Left Total Hip T-score. The patient has an estimated ten-year risk of hip fracture of 2.8% and an estimated ten-year risk of major fracture of 11%, based on the WHO FRAX algorithm. Discussion: BONE DENSITY IS LOW AT ONE OR MORE SKELETAL SITES. This patient's lowest T-score is low at one or more skeletal sites. It meets the World Health Organization's (WHO) criteria for ?low bone mass? (T-score between -1.0 and -2.5). The patient's 10-year risk of fracture as calculated by FRAX is less than the threshold where pharmacological therapy is recommended by the National Osteoporosis Foundation (NOF). However, all treatment decisions require clinical judgment and consideration of individual patient factors, including patient preferences, comorbidities, previous drug use, risk factors not captured in the FRAX model (e.g., frailty, falls, vitamin D deficiency, increased bone turnover, interval significant decline in bone density) and possible under or overestimation of fracture risk by FRAX. The patient should follow a healthful lifestyle (good nutrition with adequate calcium and vitamin D, and appropriate weight-bearing exercise). Follow-Up: Consider repeating this study in 2 to 3 years to reassess this patient's status, or sooner if there is some new clinical indication. Reported by: SALAS on 06/21/2024 8:53:00 AM. Reviewed, dictated and finalized at location ABrayan ANGELA
== END 2024-06-21 08:22 | disposition home or self-care (01) ==
LOC: ANHIMG 08:21
PROVIDERS: PCP Emergency Medicine; Visit Provider Emergency Medicine
DX: M85.89 Other specified disorders of bone density and structure, multiple sites (principal); Z78.0 Asymptomatic menopausal state; E55.9 Vitamin D deficiency, unspecified
CPT/HCPCS: 77080

== ENCOUNTER 2024-12-27 10:20 | Outpatient (CLI) | payer OTHER, SELFPAY ==
--- NOTE | ~2024-12-27 | XR_ITS ---
EXAMINATION: XR shoulder LT min 2V, 12/27/2024 10:42 CDT HISTORY: LT SHOULDER PAIN RADIATIES INTO LT HUMERUS x1 WK COMPARISON: No comparisons available. Findings: No acute fracture or malalignment. Severe degenerative changes. Small joint effusion. Moderate degenerative changes of the acromioclavicular joint. Soft tissues unremarkable. Impression: No acute fracture or malalignment. Reviewed, dictated and finalized at location P. Impression: No acute fracture or malalignment.
--- NOTE | ~2024-12-27 | XR_ITS ---
EXAMINATION: XR humerus LT, 12/27/2024 10:42 CDT HISTORY: LT SHOULDER PAIN RADIATES DOWN LT HUMERUS x1 WK COMPARISON: No comparisons available. Findings: No acute fracture or malalignment. Severe degenerative changes of the glenohumeral joint Soft tissues unremarkable. Impression: No acute fracture or malalignment. Reviewed, dictated and finalized at location P. Impression: No acute fracture or malalignment.
== END 2024-12-27 10:21 | disposition home or self-care (01) ==
LOC: MICIMG 10:24
PROVIDERS: PCP Emergency Medicine; Visit Provider Emergency Medicine
DX: M19.012 Primary osteoarthritis, left shoulder (principal); M79.602 Pain in left arm
CPT/HCPCS: 73030; 73060